=== PATIENT | female | born 2000 | race American Indian/Alaskan Native ===

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

== ENCOUNTER 2019-08-30 17:04 | Emergency (ER) | payer OTHER ==
[~2019-08-30] VITALS: Ht 172.7 cm; Wt 122.5 kg
[~2019-08-30 17:04] MED LIST changes: +OMEGA 3 1,0001 EACH PO; +PERCOCET 5-3251 EACH PO; +VITAMIN D1000 UNIT PO; +ZOFRAN4 MG PO
[2019-08-30] MEDS ORDERED: PRENATABS RX T1 EACH PO (17:26)
[2019-08-30] MEDS ORDERED: VITAMIN D400 UNIT PO (17:28)
[2019-08-30] MEDS ORDERED: AMOXICILLIN500 MG PO (17:29)
== END 2019-08-30 19:31 | disposition home or self-care (01) ==
LOC: ED 17:04
DX: O9A.211 Injury, poisoning and certain other consequences of external causes complicating pregnancy, first trimester (principal); S39.91XA Unspecified injury of abdomen, initial encounter; Z3A.01 Less than 8 weeks gestation of pregnancy; W50.0XXA Accidental hit or strike by another person, initial encounter
CPT/HCPCS: 99283

== ENCOUNTER 2020-04-06 00:02 | Inpatient (IN) | payer OTHER ==
[~2020-04-06] VITALS: Ht 170.2 cm; Wt 138.3 kg
[~2020-04-06 00:02] MED LIST changes: +AMOXICILLIN500 MG PO; +PRENATABS RX T1 EACH PO; +VITAMIN D400 UNIT PO
[2020-04-06] MEDS ORDERED: iron (01:34)
--- NOTE | 2020-04-06 08:22 | PR ---
[facility] [address] [facility] [place] [address] Signed Progress Notes IP Datetime Report Generated by CPN: 04/06/2020 08:22 PROGRESS NOTES: [id number] Impression: Normal Progression of Labor Procedures: Artificial ROM; Scalp Electrode Plan: Continue Present Management; Anticipate Vaginal Delivery VITAL SIGNS: [id number] Vital Signs: Reviewed; Within Normal Limits EXAM: [id number] Dilatation: 3.0 Effacement: 25 Station: -3 Contractions: irregular MEMBRANES: [id number] Membranes Status: Ruptured Comments: Will follow, let Peds know about possible microcephaly. FETUS A: [id number] Presentation: Vertex FETUS B: [id number] Signing Physician: Manolo Varela MD Copies: ~ *Electronically Signed* 04/06/20 08 MANOLO VARELA MD PATIENT NAME: ANKUSH SIMMONS PROGRESS NOTE DATE OF : 99 PHYSICIAN: MANOLO VARELA MD RPT #: [id number] REPORT IS CONFIDENTIAL AND NOT TO BE RELEASED WITHOUT AUTHORIZATION
--- NOTE | 2020-04-06 15:01 | NUR ---
04/06/20 1501 Sheets,[place] 1357 PT ARRIVED TO PACU ASLEEP BUT REACTIVE. O2 MASK IN PLACE AT 8L. RN REORIENTING PT TO PACU. PT MOVING ARMS AND GRABBING AT HER FACE. BAKRI IN PLACE WITH SMALL AMOUNT OF DRAINAGE IN BAG. TORRES IN PLACE DRAINING WELL. TWO IVS NOTED, ONE IN RIGHT AC AND ONE IN LEFT HAND. 1358 O2 REMOVED AND RN REORIENTING PT TO PACU, PT DENIES PAIN AND STARTS CRYING AND ASKING TO SEE HER DAUGHTER. 1415 HOB INCREASED AND PT UNABLE TO MOVE LEGS SPINAL LEVEL T-10. 1430 PT RETURNED TO [facility] ROOM 103. REPORT TO [facility] RN. VSS. PT SITTING UP AND HOLDING HER BABY. PT DENIES PAIN AND NAUSEA. LEFT HANF IV FLUSHED AND PT REPORTS PAIN AT SITE. SL AND C RN AWARE. BLOOD STARTED IN RIGHT AC.
--- NOTE | 2020-04-06 18:18 | PR ---
[facility] [address] [facility] [place], [place] [address] Signed PP Progress Notes Datetime Report Generated by CPN: 04/06/2020 18:18 SUBJECTIVE: [id number] Pain: Within Normal Limits Nausea/Vomiting: Denies Vital Signs: [id number] Vital Signs: Reviewed; Within Normal Limits Abdomen/Uterus: Normal Lochia: Normal Extremities: Normal IMPRESSION/PLAN/PROCEDURES: [id number] Other Impression: s/p PP Hemorrhage Plan: Continue Present Management Procedures: Transfusion Other Procedures: Receiving 2nd unit of PRBC's Progress Notes: Doing well, without complaint S/P PP Curettage with Bakri Balloon placement, minimal drainage form Bakri and vaginally. Recieved Ancef 2 gm in OR, as well as Cytotec Suppository. Vitals stable. Discussed surgery, Bakri treatment; will recheck CBC in am Signing Physician: Ron Varela MD Copies: ~ *Electronically Signed* 04/06/20 1818 RON VARELA MD PATIENT NAME: ANKUSH SIMMONS LONNIE PROGRESS NOTE DATE OF : 99 PHYSICIAN: RON VARELA MD RPT #: [id number] REPORT IS CONFIDENTIAL AND NOT TO BE RELEASED WITHOUT AUTHORIZATION
--- NOTE | 2020-04-07 14:10 | PR ---
[facility] [address] [facility] [place], [place] [address] Signed PP Progress Notes Datetime Report Generated by CPN: 04/07/2020 14:10 SUBJECTIVE: [id number] Pain: Within Normal Limits Nausea/Vomiting: Denies Vital Signs: [id number] Vital Signs: Reviewed; Within Normal Limits Notable Details: PP Hgb/Hct = 10.2/29.8 (after 2 units PRBC's) Abdomen/Uterus: Normal Lochia: Normal Vulva/Perineum: Normal Extremities: Normal IMPRESSION/PLAN/PROCEDURES: [id number] Impression: Normal Progression Other Impression: s/p PP Hemorrhage Plan: Continue Present Management Procedures: None Other Procedures: Receiving 2nd unit of PRBC's Progress Notes: Doing well, without complaint, minimal drainage in Bakri Balloon and vaginally. Bakri Balloon removed easily, with no increase in vaginal bleeding, Andrew Cath also removed without difficulty. Tolerated PRBC's transfusion well. Will continue to monitor. Signing Physician: Manolo Varela MD Copies: ~ *Electronically Signed* 04/07/20 1410 MANOLO VARELA MD PATIENT NAME: ANKUSH SIMMONS PROGRESS NOTE DATE OF : 99 PHYSICIAN: MANOLO VARELA MD RPT #: [id number] REPORT IS CONFIDENTIAL AND NOT TO BE RELEASED WITHOUT AUTHORIZATION
--- NOTE | 2020-04-07 14:14 | OR ---
[facility] [address] [place] [address] Signed DATE OF OPERATION: 04/06/2020 SURGEON: Rno Herrmann MD Patient of Dr. Herrmann. PREOPERATIVE DIAGNOSIS: hemorrhage. POSTOPERATIVE DIAGNOSIS: hemorrhage. PROCEDURE: curettage. Exam under anesthesia with repair of small vaginal laceration and Bakri balloon placement under ultrasound guidance. EMBEDDED SYSTEMS DESIGNER: Dr. Garza. ANESTHESIA: General. ESTIMATED BLOOD LOSS: 200 mL. COMPLICATIONS: None. DRAINS: Andrew to bladder, Bakri balloon in the uterus. FINDINGS: Immediate vagina, cervix, and uterus with a small midline vaginal laceration with a small amount of bleeding, probably due to multiple exams and instrumentation trying to identify source of bleeding. Cervix open, approximately 4 cm. The entire cervix showed no evidence of laceration. Uterus was firm, had normal empty cavity except for blood clots, but did have continuous slow bleeding throughout the case. No adnexal masses palpable. DESCRIPTION OF PROCEDURE: Electronically Signed By: RON HERRMANN MD 04/07/20 1414 PATIENT NAME: ANKUSH SIMMONS OPERATIVE REPORT DATE OF : 99 REPORT #: [id number] PHYSICIAN: RON HERRMANN MD PCP: JASON SANCHEZ REPORT IS CONFIDENTIAL AND NOT TO BE RELEASED WITHOUT AUTHORIZATION [address] [address] Signed The patient was brought into the operating room, placed in supine position, and after adequate general anesthesia was obtained, was placed in dorsal lithotomy position, prepped and draped in usual sterile fashion. Andrew catheter was already in place in the bladder. Weighted speculum was placed in the vagina and the cervix grasped with several ring forceps. The entire cervix was followed in 360 degree fashion. No evidence of cervical laceration was seen. The ring forceps were left on the cervix and a banjo curette carefully introduced into the uterine cavity, brought to the fundus, and scraped in a 360-degree fashion removing no tissue and several medium-sized clots. At this point, the uterus was palpated again, noted to be firm, but because of the continued slow bleeding, it was decided to proceed with a Bakri balloon. The balloon was placed through the cervix up into the uterus and inserted up to the thought was the fundus and the balloon at the end to be filled with sterile saline. Ultrasound was used to identify the balloon and try to identify position in the uterus and it appeared to be in the correct place. Balloon was filled with 300 mL of fluid. As the balloon filled, it became apparent that the balloon had twisted, so the tip of the balloon was now in the cervical os and the proximal portion of the balloon was in the fundus. Because of the kinking of the tubing coming out of the balloon, there would be no good release of the blood above the balloon, so the balloon was deflated and then again placed in the uterine cavity by grasping the tip with a ring forceps and carefully placing the tip in the fundus under direct visualization by ultrasound. The ring forceps was removed holding the balloon in place with the tubing and then the balloon slowly refilled with fluid. Upon reaching 300 mL, it was getting more difficult to fill the balloon. The balloon was examined, noted to be in the lower segment and up into the uterus, but staying above the cervix. The ring forceps were removed from the cervix and the pelvis was examined and noted to have good hemostasis at this time except for the small laceration just to the right of midline in the vagina. This was controlled with a [id number] stitch of 2-0 chromic suture. The Bakri balloon was left in place and watched for several minutes. There was slight blood in the tubing, but none dripping out and it was at this time, the balloon placement seemed to be controlling any bleeding and by ultrasound, the balloon seem to be in the correct placement in the uterine cavity. So at this point, it was decided to leave the balloon in place and the procedure was terminated. Andrew bag was attached to the Bakri balloon and the Andrew catheter was left in the bladder. The patient tolerated the procedure well, went to recovery room in good condition. Sponge, needle, and instrument count were correct at the end of the procedure. Ron Herrmann MD Electronically Signed By: RON HERRMANN MD 04/07/20 1414 PATIENT NAME: ANKUSH SIMMONS OPERATIVE REPORT DATE OF : 99 REPORT #: [id number] PHYSICIAN: RON HERRMANN MD PCP: JASON SANCHEZ REPORT IS CONFIDENTIAL AND NOT TO BE RELEASED WITHOUT AUTHORIZATION [address] [address] Signed MJB/MODL /[id number] cc: Jason Sanchez Copies: JASON SANCHEZ ~ Electronically Signed By: RON HERRMANN MD 04/07/20 1414 PATIENT NAME: ANKUSH SIMMONS OPERATIVE REPORT DATE OF : 99 REPORT #: [id number] PHYSICIAN: RON HERRMANN MD PCP: JASON SANCHEZ REPORT IS CONFIDENTIAL AND NOT TO BE RELEASED WITHOUT AUTHORIZATION
--- NOTE | 2020-04-08 12:44 | PR ---
[facility] [address] [facility] [place], [place] [address] Signed PP Progress Notes Datetime Report Generated by CPN: 04/08/2020 12:44 SUBJECTIVE: [id number] Pain: Within Normal Limits Nausea/Vomiting: Denies Vital Signs: [id number] Vital Signs: Reviewed; Within Normal Limits Notable Details: PP Hgb/Hct = 10.2/29.8 (after 2 units PRBC's) EXAM: Ongoing Abdomen/Uterus: Normal Lochia: Normal Vulva/Perineum: Normal Extremities: Normal IMPRESSION/PLAN/PROCEDURES: [id number] Impression: Normal Progression Other Impression: s/p PP Hemorrhage Plan: Discharge Procedures: None Other Procedures: Receiving 2nd unit of PRBC's Progress Notes: Doing well, without complaint; minimal bleedi]ng, ready to go home. Signing Physician: Manolo Varela MD Copies: ~ *Electronically Signed* 04/08/20 1244 MANOLO VARELA MD PATIENT NAME: ANKUSH SIMMONS PROGRESS NOTE DATE OF : 99 PHYSICIAN: MANOLO VARELA MD RPT #: [id number] REPORT IS CONFIDENTIAL AND NOT TO BE RELEASED WITHOUT AUTHORIZATION
== END 2020-04-08 13:45 | disposition home or self-care (01) | DRG 768 ==
LOC: FBC
PROVIDERS: ADMIT General Practice
PROC: 0HQ9XZZ Repair Perineum Skin, External Approach (ICD-10-PCS; 2020-04-06)
PROC: 10907ZC Drainage of Amniotic Fluid, Therapeutic from Products of Conception, Via Natural or Artificial Opening (ICD-10-PCS; 2020-04-06)
PROC: 10D07Z8 Extraction of Products of Conception, Other, Via Natural or Artificial Opening (ICD-10-PCS; 2020-04-06)
PROC: 30233N1 Transfusion of Nonautologous Red Blood Cells into Peripheral Vein, Percutaneous Approach (ICD-10-PCS; 2020-04-06)
PROC: 00HU33Z Insertion of Infusion Device into Spinal Canal, Percutaneous Approach (ICD-10-PCS; 2020-04-06)
PROC: 3E0R3BZ Introduction of Anesthetic Agent into Spinal Canal, Percutaneous Approach (ICD-10-PCS; 2020-04-06)
PROC: 10E0XZZ Delivery of Products of Conception, External Approach (ICD-10-PCS; principal; 2020-04-06 12:00)
PROC: 0W3R7ZZ Control Bleeding in Genitourinary Tract, Via Natural or Artificial Opening (ICD-10-PCS; 2020-04-06 12:00)
DX: O48.0 Post-term pregnancy (principal); Z37.0 Single live birth; O72.1 Other immediate postpartum hemorrhage; Z3A.40 40 weeks gestation of pregnancy; P08.1 Other heavy for gestational age newborn; O70.0 First degree perineal laceration during delivery; O35.8XX0 Maternal care for other (suspected) fetal abnormality and damage, not applicable or unspecified; O99.824 Streptococcus B carrier state complicating childbirth; O69.81X0 Labor and delivery complicated by cord around neck, without compression, not applicable or unspecified; O99.02 Anemia complicating childbirth; D64.9 Anemia, unspecified; O99.344 Other mental disorders complicating childbirth; F32.9 Major depressive disorder, single episode, unspecified; F41.9 Anxiety disorder, unspecified; O99.52 Diseases of the respiratory system complicating childbirth; J45.909 Unspecified asthma, uncomplicated; O99.284 Endocrine, nutritional and metabolic diseases complicating childbirth; E55.9 Vitamin D deficiency, unspecified; Z79.899 Other long term (current) drug therapy; Z87.891 Personal history of nicotine dependence; Z79.82 Long term (current) use of aspirin
CPT/HCPCS: 00952; 01960; 36415; 85027; 86850; 86900; 86901; 86920; A9270; J0690; J1100; J1885; J2001; J2405; J2540; J2590; J2704; J3010; J7121; P9016

== ENCOUNTER 2020-12-05 14:29 | Emergency (ER) | payer OTHER ==
[~2020-12-05] VITALS: Ht 170.2 cm; Wt 138.3 kg
[~2020-12-05 14:29] MED LIST changes: +iron
== END 2020-12-05 16:05 | disposition home or self-care (01) ==
LOC: ED 14:29
DX: S01.21XA Laceration without foreign body of nose, initial encounter (principal); S80.12XA Contusion of left lower leg, initial encounter; V29.9XXA Motorcycle rider (driver) (passenger) injured in unspecified traffic accident, initial encounter; J45.909 Unspecified asthma, uncomplicated
CPT/HCPCS: 12011; 73590; 99284-25

== ENCOUNTER 2021-07-04 19:59 | Emergency (ER) | payer OTHER ==
[~2021-07-04] VITALS: Ht 170.2 cm; Wt 117.9 kg
[2021-07-04] MEDS ORDERED: IBU800 MG PO (22:38)
[2021-07-04] MEDS ORDERED: CYCLOBENZAPRINE5 MG PO (22:38)
[2021-07-04] MEDS ORDERED: MAPAP500 MG PO (22:38)
== END 2021-07-04 22:59 | disposition home or self-care (01) ==
LOC: ED 19:59
DX: S50.12XA Contusion of left forearm, initial encounter (principal); S50.11XA Contusion of right forearm, initial encounter; M25.522 Pain in left elbow; M25.512 Pain in left shoulder; M54.50 Low back pain, unspecified; Z90.89 Acquired absence of other organs; Y04.8XXA Assault by other bodily force, initial encounter
CPT/HCPCS: 73030; 73080; 99284-25; A9270

== ENCOUNTER 2022-01-06 17:51 | Emergency (ER) | payer OTHER ==
[~2022-01-06] VITALS: Ht 170.2 cm; Wt 106.9 kg
[~2022-01-06 17:51] MED LIST changes: +CYCLOBENZAPRINE5 MG PO; +IBU800 MG PO; +MAPAP500 MG PO
[2022-01-06] MEDS ORDERED: BUPROPION XL300 MG PO (20:24)
[2022-01-06] MEDS ORDERED: VENTOLIN HFA18 GM (20:25)
== END 2022-01-06 23:02 | disposition left against medical advice (07) ==
LOC: ED 17:51
DX: N93.8 Other specified abnormal uterine and vaginal bleeding (principal); J45.909 Unspecified asthma, uncomplicated; Z79.899 Other long term (current) drug therapy
CPT/HCPCS: 36415; 76830; 76856; 80053; 81001; 83690; 84703; 85025; 99284-25

== ENCOUNTER 2022-01-15 14:03 | Emergency (ER) | payer OTHER ==
[~2022-01-15] VITALS: Ht 170.2 cm; Wt 106.9 kg
[~2022-01-15 14:03] MED LIST changes: +BUPROPION XL300 MG PO; +VENTOLIN HFA18 GM
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
[2022-01-15] MEDS ORDERED: NEXPLANON68 MG SUB-Q (14:30)
== END 2022-01-15 19:00 | disposition home or self-care (01) ==
LOC: ED 14:03
DX: R10.31 Right lower quadrant pain (principal); R10.32 Left lower quadrant pain; E66.9 Obesity, unspecified; J45.909 Unspecified asthma, uncomplicated; Z79.899 Other long term (current) drug therapy
CPT/HCPCS: 36415; 74177; 76830; 76856; 80053; 81001; 84703; 85025; 96375; 99284-25; J1170; J1885; J2405; J7030; Q9967

== ENCOUNTER 2022-01-20 13:33 | Emergency (ER) | payer OTHER ==
[~2022-01-20] VITALS: Ht 170.2 cm; Wt 106.9 kg
[~2022-01-20 13:33] MED LIST changes: +NEXPLANON68 MG SUB-Q
--- OUTSIDE RECORDS SUMMARY | 2022-01-20 13:41 | XMS ---
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 - Patient with suicidal and/or homicidal ideations eloped. - Patient eloped with IV in place. Details: PATIENT LEFT AMA CRITERIA MET - [facility] - 2 Visits in 30 Days CARE PROVIDERS There are no care providers on record at this time. Ning has no Care Guidelines for this patient. E.Edel. VISIT COUNT (12 MO.) 4 [facility] H. TOTAL 4 NOTE: Visits indicate total known visits. ED/C VISIT TRACKING (12 MO.) 01/20/2022 13:34 [facility] TYPE: Emergency COMPLAINT: - ABD PAIN, SOB 01/15/2022 14:04 [facility] [place] TYPE: Emergency COMPLAINT: - ABD PAIN DIAGNOSES: - Obesity, unspecified - Unspecified asthma, uncomplicated - Lower abdominal pain, unspecified - Left lower quadrant pain - Right lower quadrant pain - Other terminal operator (current) drug therapy 01/06/2022 17:51 [facility] [place] TYPE: Emergency COMPLAINT: - VAGINAL BLEEDING DIAGNOSES: - Other senior care (current) drug therapy - Unspecified asthma, uncomplicated - Other specified abnormal uterine and vaginal bleeding - Abnormal uterine and vaginal bleeding, unspecified 07/04/2021 20:00 [facility] [place] TYPE: Emergency COMPLAINT: - LT SIDED [...] visits to display in this time frame [email or web address]
[2022-01-20] MEDS ORDERED: ONDANSETRON ODT4 MG PO (16:29)
[2022-01-20] MEDS ORDERED: HYDROCODON-ACE1 EA11 PO (16:29)
[2022-01-20] MEDS ORDERED: OMEPRAZOLE20 M1 PO (16:29)
== END 2022-01-20 16:45 | disposition home or self-care (01) ==
LOC: ED 13:33
DX: R10.32 Left lower quadrant pain (principal); J45.909 Unspecified asthma, uncomplicated; Z79.899 Other long term (current) drug therapy
CPT/HCPCS: 36415; 76705; 80053; 81001; 83690; 83735; 84703; 85025; 96361; 96374; 96375; 99284-25; A9270; C9113; J1170; J1885; J2405; J7030

== ENCOUNTER 2022-05-08 15:30 | Emergency (ER) | payer OTHER ==
[~2022-05-08] VITALS: Ht 170.2 cm; Wt 108.4 kg
[~2022-05-08 15:30] MED LIST changes: +HYDROCODON-ACE1 EA11 PO; +OMEPRAZOLE20 M1 PO; +ONDANSETRON ODT4 MG PO
== END 2022-05-08 18:56 | disposition home or self-care (01) ==
LOC: ED 15:30
DX: R45.851 Suicidal ideations (principal); J45.909 Unspecified asthma, uncomplicated; Z79.899 Other long term (current) drug therapy
CPT/HCPCS: 36415; 80053; 81001; 84443; 85025; 99285; G0480

== ENCOUNTER 2022-07-04 20:16 | Inpatient (IN) | payer OTHER ==
[~2022-07-04] VITALS: Ht 170.2 cm; Wt 108.0 kg
[~2022-07-04 20:16] MED LIST changes: +BUPROPION XL150 MG PO; -BUPROPION XL300 MG PO; +PROAIR HFA8.5 GM INH; -VENTOLIN HFA18 GM
--- NOTE | 2022-07-04 23:30 | NUR ---
PATIENT REPORT RECEIVED FROM CANDELARIA CRUZ. PATIENT ARRIVED ON UNIT VIA STRETCHER AND TRANSFERED TO HOSPITAL BED INDEPENDENTLY. PATIENT IS DROWSY AND SPEECH IS SLURRED AND INCOHERNT. PATIENT HAD INNCONTIENT URINE VOID. ATTENDS PLACED ON PATIENT. PATIENT SLOW TO RESPOND. GAG REFLUX CHECK AND INTACT. PATIENT VS STABLE AT THIS TIME. PATIENT UNABLE TO ANSWER ADMIT QUESTIONS. PATIENT IN LINE OF SITE TO NURSES STATION AND SAFTEY CHECKS IN PLACE FOR SUICIDAL IDEATION.
--- NOTE | 2022-07-04 23:36 | NUR ---
PATIENT HAD A SEIZURE LASTING APPROXIMATELY 30 SECONDS. PRN ATIVAN GIVEN. AT THIS TIME PATIENT DID NOT HAVE A GAG REFLUX. MIRLANDE RN CALLED DR CRUZ, ANESTHESIA, AND RT TO BEDSIDE. PATIENT NOT PROTECTING AIRWAY. NASALPHARYNGEAL TUBE PLACED BY JESSICA RT. 2350 DR CRUZ AND ANESTHESIA AT BEDSIDE. PATIENT INTUBATED AT 2357. 7.0 ETT 22 AT THE TEETH. OG PLACED AT 2359. LINED CONFIRMED BY XRAY BY DR DANIELSON AT BEDSIDE. 2350 TORRES CATH PLACED. 0100 SOFT RESTRAINT PLACED TO BUE. HEAD OF BED AT 30 DEGREES. PATIENTS TONGUE AND NOSE RINGS REMOVED PRIOR TO INTUBATION.
--- NOTE | 2022-07-05 00:50 | NUR ---
CALLED RT @ 2337 TO COME TO PATIENT ROOM CALLED DR CRUZ @ 9068 TO REPORT PATIENT ACTIVITY AND COME EVALUATE PATIENT CALLED DIANNE STRINGER @ 2094 TO COME TO PATIENT ROOM
--- NOTE | 2022-07-05 01:24 | NUR ---
PATIENT HAD A SEIZURE LASTING ABOUT 10-[address] CRUZ NOTIFIED. NO NEW ORDERS. SEIZURE PADS IN PLACE. OG TO LIS.
--- NOTE | 2022-07-05 01:57 | NUR ---
THIS RN PLACED X2 NEW IV'S
--- NOTE | 2022-07-05 02:06 | NUR ---
DR CRUZ NOTIFIED OF HYPOTENSION. WHILE ON THE PHONE PATIENT HAD ANOTHER SEIZURE LASTING ABOUT 10-15 SECS. VALIUM GIVEN AND ORDERS FOR LEVOPHED AND PROPOFOL TAKEN. MAP GOAL OF 65. URINE DRAINING TO BEDSIDE BAG. POISON CONTROL UPDATED ON PATIENT CONDITION.
--- NOTE | 2022-07-05 02:40 | NUR ---
PATIENT SEIZED FOR ABOUT [address] CRUZ NOTIFIED AND VALIUM GIVEN. ORDERS TO UP PROPOFOL TO 20MCG/MIN AND TITRATE BY 5MCG/MIN UNTIL NO SEIZURE ACTIVITY NOTED.
--- NOTE | 2022-07-05 03:15 | NUR ---
DR CRUZ NOTIFIED OF PATIENT NEEDING AN INCREASE IN LEVOPHED FROM 6MCG/MIN TO 40MCG/MIN TO MAINTAIN MAP OF 60-65. ORDERDS TO MAX LEVOPHED OUT AT 60MCG/MIN TO MAINTAIN MAP 60-65. UPODATED ON URINE OUTPUT.
--- NOTE | 2022-07-05 03:46 | NUR ---
PATIENTS LEVOPHED TITRATED TO KEEP MAP 60-65. LEVOPHED TITRATED TO 40MCG/MIN. DR CRUZ NOTIFIED OF RAPID TITRATION OF MEDICATION.
--- NOTE | 2022-07-05 04:55 | NUR ---
PATIENT REPOSITIONED AND ORAL CARE COMPLETED Q 2 HOURS. PATIENT WITH BLOODY SECRETIONS TO ORAL AND INLINE SUCTION. SEIZURE PADS IN PLACE FOR SAFETY. REMAINS ON LEVOPHED TO MAINTAIN MAP 60-65. PROPOFOL FOR SEDATION.
--- NOTE | 2022-07-05 06:11 | NUR ---
PATIENT ACTIVELY SEIZING. VALIUM GIVEN. PROPOFOL TITRATED UP PER MD UNITL NO SIEZURE ACTIVITY NOTED.
--- NOTE | 2022-07-05 06:30 | NUR ---
MD UPDATED ON PATIENTS CURRENT SEIZURE ACTIVITY WELL ST DEPRESSION SEEN IN RHYTHM. UPDATED ON DECREASED URINE OUTPUT AND CURRENT IV RATES FOR MEDICATIONS.
--- NOTE | 2022-07-05 06:40 | NUR ---
DR CRUZ NOTIFIED OF EKG RESULTS.
--- NOTE | 2022-07-05 07:30 | NUR ---
REPORT RECIEVED, CARE OF PT ASSUMED AT THIS TIME. PT RESTING ON VENT.RR = 20. LEVOPHED INFUSING AT 22 MCG/MIN. PROPOFOL INFUSING AT 25 MCG/KG/MIN. END TITLE CO2 = 60%. HEART RATE IN THE 90S.
--- NOTE | 2022-07-05 08:00 | NUR ---
CALLED DR CRUZ AND DISCUSSED PLAN TO ADMINISTER LIPID BOLUS. CYNTHIA CONLEY ALSO CALLED TO VERIFY ADMINISTRATION BOLUSES. PT GIVEN IV PUSHES OF LIPID EMULSION WITH USE OF BLUE FILTER OVER 1 MINUTE PER ORDER.
--- NOTE | 2022-07-05 08:28 | NUR ---
LEVOPHED TITRATED DOWN AT THIS TIME (SEE FLOWSHEET).
--- NOTE | 2022-07-05 08:30 | NUR ---
ASSESSMENT COMPLETED. PT AT A RASS OF -4. PUPILS DILATED AND SLUGGISH. DISTAL PULSES WEAK BUT PALPABLE. HR RATE IN THE 80S AT REST. ST SEGMENT DEPRESSION NOTED IN ECG. LUNGS ARE CLEAR. LEVOPHED TITRATED DOWN TO 18 (SEE FLOWSHEET). SPO2 = [address] CRUZ IN ROOM AT THIS TIME. DISCUSSED PLAN OF CARE. ABG ORDERED AT THIS TIME BY DR CRUZ. RT NOTIFIED. DR CRUZ REQUESTING PICC GLUE JOINTER OPERATOR MILVIA NOTIFIED. THIS RN REMAINS AT PT BEDSIDE.
--- NOTE | 2022-07-05 09:04 | NUR ---
POISON CONTROL UPDATED AT THIS TIME ON PT CURRENT LABS, MEDICATION ADMINISTRATION, ECG FINDINGS AND ASSESSMENT FINDINGS.
--- NOTE | 2022-07-05 10:15 | NUR ---
THREE BOLUS DOSES OF FAT EMULSION GIVEN APPORXIAMETLY EVERY FIVE MINUTES. BLOOD PRESSURES IMPROVED (SEE VITAL SIGNS) AND QRS COMPLEX SLOWLY SHORTENING (SEE ECG STRIPS). AFTER THIRD DOSE GIVEN, THIS RN NOTED FACIAL TWITICH AND NON PURPOSEFUL HEAD MOVEMENT. DR CRUZ CALLED TO BEDSIDE. PLAN ESTABLISHED FOR RAPID TITRATION OFF LEVOPHED. PER DR CRUZ ORDER LEVOPHED TO BE TITRATED DOWN EVERY FIVE MINUTES WITH MAPS MAINTAINED OVER 65.
--- NOTE | 2022-07-05 10:25 | NUR ---
ALAN CRUZ HERE FOR PICC LINE PLACEMENT - ORDERS ENTERED.
--- NOTE | 2022-07-05 10:30 | NUR ---
PT FAMILY IN WAITING ROOM AT THIS TIME. PT'S FAMILY OFFERED OPPORTUNITY TO COME TO PT BEDSIDE AT THIS TIME.
[2022-07-05] MEDS ORDERED: FLUTICASONE PRO16 GM NAS (11:25)
[2022-07-05] MEDS ORDERED: LIDOCAINE HCL100 ML MT (11:26)
--- NOTE | 2022-07-05 11:34 | NUR ---
MED REC COMPLETE
--- NOTE | 2022-07-05 11:56 | NUR ---
ORDERS RECIEVED TO EVALUATE PT FOR POSSIBLE PICC INSERTION. AFTER REVIEWING THE CHART, NO ABSOLUTE CONTRAINDICATIONS WERE FOUND. MD AND CCU RN'S CURENTLY AT BEDSIDE MANAGING BOLUSES AND VASOPRESSOR MEDICATIONS. THE PATIENT IS INTUBATED AND CURENTLY UNABLE TO CONSENT. ALTHOUGH THE PATIENT HAS MULTIPLE IV SITES NOW, IT IS SUGGESTED THAT VASOPRESSERS WOULD BE BETTER GIVEN THROUGH A PICC LINE OR CENTRAL LINE. THE RIGHT ARM IS EXCLUDED FROM EXAM DUE TO MULTIPLE IV SITES AND INFUSING VASOPRESSERS ON THE RIGHT. THE LEFT ARM IS EXAMINED WITH MARITZA HENRIQUEZ U/S AND THE LEFT BASILIC VEIN IS IDENTIFIED AND FOUND TO BE LARGE ENOUGH TO ACCOMIDATE A 4 FR PICC WHICH IS ESTIMATED TO TAKE UP 35% OF THE VESSEL. THE ARM IS PREPPED AND DRAPED AND STERILE TECHNIQUE WAS USED FOR THE DURATION OF THE PICC INSERTION AND DRESSING APPLICATION PROCEDURE. THE LEFT BASILIC VEIN IS SEEN TO BE 1.5CM BELOW THE SURFACE OF THE SKIN AT THE INSERTION POINT AND THERE WERE NO ISSUES OBTAINING ACCESS, OR ADVANCING THE GUIDEWIRE, INTRODUCER, OR PICC LINE. MAGNET TRACKING AND TPS GREENSKEEPER LABORER WERE USED AND BOTH SHOWED THE TIP OF THE LINE ADVANCING TO A CENTRAL LOCATION AND P WAVE ENLARGEMENT WAS NOTED. A CXR WAS ORDERED TO CONFIRM LINE PLACEMENT BUT IT HAS NOT YET BEEN TAKEN. BOTH LUMENS DRAW BLOOD AND FLUSH EASILY. WE ARE AWAITING THE RESULTS OF THE CXR PRIOR TO USING THE LINE
--- NOTE | 2022-07-05 14:14 | NUR ---
10:13 levophed titrated down to 18 mcg/kg/min and third lipid emulsion bolus given. 1020: Pts blood pressure 63/42 (50). levophed titrated up to 25 mcg/min per Dr Fitzgerald. PT's extremities cool. mottling noted on legs. Axillary temp of 99.2 1033: blood pressures continue to drop 66/32 (40). Rapid titration of levophed up to 40 mcg/kg/min at this time per Dr Fitzgerald order. 4th and 5th doses of lipids administered (see emar). 1048: Final dose of lipids given. 1 L of LR infusing as rapid bolus on pressure bag. 1102: Vasopressin now infusing a 0.[address] Fitzgerald order. double verified with drip rate with Dr. Fitzgerald and ANTHONY Levin. ANTHONY Gloria at bedside to insert PICC line. further seizure activity noted. Dr Fitzgerald notified and propofol titrated up to 30 mcg/kg/min 1120: Picc insertion completed. 1136: blood pressure 55/20 at this time. Levophed titrated up to 50 mcg/kg/min 1 L of NS on pressure bag now infusing. Levophed started on second pump infusing at 10 mcg/kg/min. seizure activity noted again. . Dr Fitzgerald on phone with physician at [facility] initiating pt transfer 1140: Xray in room. AED pads placed on pt at this time. Dermatology Technician, Amilcar, ANTHONY levin at bedside. seizure activity noted. 10 mg of Iv valium given 1155: levophed titrated up to a total of 70 mcg/kg/min at this time 1206: Code called. See code flowsheet 1244: CRP stopeed 1248: Pt pronounced by Dr Fitzgerald
--- NOTE | 2022-07-05 15:20 | NUR ---
PT body transported to [facility].
--- NOTE | 2022-07-05 17:10 | NUR ---
ANTHONY DE LA PAZ NOTIFIED ME THAT PT HAS CODED AND FAMILY IS PRESENT AND WOULD LIKE FOR ME TO COME. FOUND FAMILY IN QUIET RM-MOTHER AND FATHER. CPR ACTIVELY BEING ADMINISTERED. MOTHER DISTRAUGHT, WAS ABLE TO CONNECT WITH BOTH. MOTHER KRIS EXPRESSED ANGER, FEAR AND ANGUISH. DR CRUZ ENTERED, INFORMED FAMILY THAT EFFORTS TO REVIVE PT TO THIS POINT WERE UNSUCCESFUL. PT HAS BEEN WITHOUT HEART ACTIVITY FOR 30 MINUTES. KRIS SAID THIS IS WHAT SHE WANTED-PT HAD NO FIGHT IN HER. TIME TO STOP. MET WITH FAMILY, GAVE CONSOLATION AND MINISTRY OF PRESENCE. DECISION MADE TO USE FREEMAN. THEY WERE NOTIFIED, SOME FAMILY STAYED AND ESCORTED PT TO VEHICLE. PERSONEL BELONGINGS WITH FAMILY. ANYA PLACE ON BODY AND TO REMAIN WITH PT.
--- NOTE | 2022-07-05 17:51 | EKG ---
[facility] [address] [facility] [place] [address] Signed Normal sinus rhythm with sinus arrhythmia Normal ECG No previous ECGs available Confirmed by DIMITRY CRUZ MD ([id number]) on 07/05/2022 5:50:55 PM Electronically Signed By: DIMITRY CRUZ MD 07/05/221750 PATIENT NAME: SIMMONSANKUSH Electrocardiogram DATE OF : 89 PHYSICIAN: DIMITRY CRUZ MD REPORT #: [id number] REPORT IS CONFIDENTIAL AND NOT TO BE RELEASED WITHOUT AUTHORIZATION
--- NOTE | 2022-07-05 17:51 | EKG ---
[facility] [address] [facility] [place] [address] Signed Normal sinus rhythm Rightward axis Borderline ECG When compared with ECG of 04-JUL-2022 20:14, (Unconfirmed) No significant change was found Confirmed by DIMITRY CRUZ MD ([id number]) on 07/05/2022 5:51:23 PM Electronically Signed By: DIMITRY CRUZ MD 07/05/221750 PATIENT NAME: ANKUSH SIMMONS Electrocardiogram DATE OF : [birth year] PHYSICIAN: DIMITRY CRUZ MD REPORT #: [id number] REPORT IS CONFIDENTIAL AND NOT TO BE RELEASED WITHOUT AUTHORIZATION
--- NOTE | 2022-07-05 17:52 | EKG ---
[facility] [address] [facility] [place] [address] Signed Normal sinus rhythm Nonspecific intraventricular block Possible Anterolateral infarct , age undetermined Abnormal ECG When compared with ECG of 05-JUL-2022 00:14, (Unconfirmed) Questionable change in QRS duration Borderline criteria for Anterior infarct are now present Borderline criteria for Anterolateral infarct are now present Confirmed by DIMITRY CRUZ MD ([id number]) on 07/05/2022 5:52:02 PM Electronically Signed By: DIMITRY CRUZ MD 07/05/221751 PATIENT NAME: ANKUSH SIMMONSN Electrocardiogram DATE OF : [birth year] PHYSICIAN: DIMITRY CRUZ MD REPORT #: [id number] REPORT IS CONFIDENTIAL AND NOT TO BE RELEASED WITHOUT AUTHORIZATION
== END 2022-07-05 12:48 | DRG 918 ==
LOC: ED 20:16 → CCU 20:18
PROVIDERS: ADMIT Internal Medicine; ATTEND Internal Medicine
PROC: 3E033XZ Introduction of Vasopressor into Peripheral Vein, Percutaneous Approach (ICD-10-PCS; 2022-07-05)
PROC: 5A12012 Performance of Cardiac Output, Single, Manual (ICD-10-PCS; 2022-07-05)
PROC: 5A1935Z Respiratory Ventilation, Less than 24 Consecutive Hours (ICD-10-PCS; 2022-07-05)
PROC: 0BH17EZ Insertion of Endotracheal Airway into Trachea, Via Natural or Artificial Opening (ICD-10-PCS; principal; 2022-07-05 11:00)
DX: T43.292A Poisoning by other antidepressants, intentional self-harm, initial encounter (principal); T39.1X2A Poisoning by 4-Aminophenol derivatives, intentional self-harm, initial encounter; T45.0X2A Poisoning by antiallergic and antiemetic drugs, intentional self-harm, initial encounter; F32.9 Major depressive disorder, single episode, unspecified; Z20.822 Contact with and (suspected) exposure to COVID-19; I95.9 Hypotension, unspecified; R56.9 Unspecified convulsions; Z78.1 Physical restraint status; J45.909 Unspecified asthma, uncomplicated; Z90.49 Acquired absence of other specified parts of digestive tract; Z79.899 Other long term (current) drug therapy; X58.XXXA Exposure to other specified factors, initial encounter
CPT/HCPCS: 00320; 31500; 36415; 36569; 36600; 51700; 71045; 80048; 80053; 81001; 82803; 83735; 84443; 84703; 85025; 85610; 93005; 93010; 94003; 96374; 99285-25; C1751; C9113; G0378; G0480; J0132; J0171; J0330; J2060; J2560; J2704; J3360; J3475; J3480; J7060; J7070; J7121; Q9968; U0003